=== PATIENT | female | born 1990 | race Caucasian/White ===

== ENCOUNTER 2017-10-02 06:18 | Inpatient (IN) ==
[2017-10-04 11:42] VITALS: BP 110/53
== END 2017-10-04 13:30 | disposition home or self-care (01) | DRG 766 ==
LOC: EDBD → N.LD 06:18 → N.LDOUT 06:18 → N.LD 07:38 → N.OB 13:59
PROVIDERS: ADMIT Obstetrics & Gynecology; ATTEND Obstetrics & Gynecology